=== PATIENT | female | born 1950 | race Caucasian/White ===

== ENCOUNTER 2019-10-26 21:58 | Observation (INO) ==
[2019-10-26] MEDS ORDERED: Isovue-370 500 ML BOTTLE IVP ONE (22:19)
[2019-10-26 23:48] LABS: BUN/Creatinine Ratio 14 (6-26); Blood Urea Nitrogen 11 mg/dL (8-23); Calcium 8.8 mg/dL (8.6-10.3); Carbon Dioxide 22 mEq/L (23-29); Chloride 107 mEq/L (98-107); Glucose 108 mg/dL (70-105); Osmolality,Calculated 278 (280-300); Potassium 3.8 mEq/L (3.5-5.1); Sodium 134 mEq/L (136-145); eGFR For African Americans > 60 (> 60); eGFR For Non-African Americans > 60 (> 60)
[2019-10-26 23:49] LABS: Albumin 3.7 g/dL (3.5-5.7); Albumin/Globulin Ratio 1.2 (1.1-2.2); Bilirubin,Direct 0.2 mg/dL (0.0-0.2); Bilirubin,Indirect 0.9 mg/dL (0.0-1.0); Bilirubin,Total 1.1 mg/dL (0.3-1.0); Globulin 3.1 g/dL (2.4-3.5); Total Protein 6.8 g/dL (6.4-8.9)
[2019-10-26 23:51] LABS: Hematocrit 42.1 % (35.3-44.9); Hemoglobin 13.9 g/dL (11.5-15.4); Mean Corpuscular Hemoglobin 28.9 pg (28.0-33.3); Mean Corpuscular Volume 87.5 fL (83.0-100.0); Mean Platelet Volume 11.7 fL (9.4-12.4); Platelet Count 201 K/mcL (140-400); Red Blood Count 4.81 M/mcL (3.82-4.97); Red Cell Distribution Width 13.5 % (11.5-14.5); White Blood Count 8.8 K/mcL (4.3-11.1)
[2019-10-27 00:36] LABS: Bilirubin,Urine Small (Negative); Blood,Urine Negative (Negative); Clarity,Urine Cloudy (Clear); Color,Urine Dark Yellow (Yellow); Glucose,Urine (UA) Normal (Normal); Ketones,Urine Negative (Negative); Leukocyte Esterase,Urine Moderate (Negative); Nitrite,Urine Negative (Negative); Protein,Urine Negative (Neg-Trace); Specific Gravity,Urine 1.025 (1.010-1.025)
[2019-10-27 00:39] LABS: Bacteria,Urine None Seen per hpf (None-Few); Hyaline Casts,Urine None Seen per lpf (None-Few); RBC,Urine 0-3 per hpf (0-3); Squamous Epithelial Cell,Urine Many per lpf (None-Few)
[2019-10-27] MEDS ORDERED: CefOXitin 1,000 MG VIAL ONE (02:16)
[2019-10-27] MEDS ORDERED: *HR* FentaNYL (PF) 100 MCG/2 ML VIAL ONE (02:39)
[2019-10-27] MEDS ORDERED: *HR* Propofol 200 MG/20 ML VIAL IVP ONE (02:40)
[2019-10-27] MEDS ORDERED: Lidocaine -MPF 2% 2 ML VIAL ONE (02:42)
[2019-10-27] MEDS ORDERED: *HR* Succinylcholine 200 MG/10 ML VIAL IVP ONE (02:42)
[2019-10-27] MEDS ORDERED: Dexamethasone 4 MG/ML VIAL ONE (02:42)
[2019-10-27] MEDS ORDERED: *HR* Rocuronium Bromide 50 MG/5 ML VIAL ONE (02:42)
[2019-10-27] MEDS ORDERED: Ondansetron 4 MG/2 ML VIAL ONE (02:42)
[2019-10-27] MEDS ORDERED: Ondansetron 4 MG/2 ML VIAL IVP ONE ×2 (02:55→04:42)
[2019-10-27] MEDS ORDERED: *HR* OxyCODONE Immed Rel 5 MG TABLET PO PRN (02:55)
[2019-10-27] MEDS ORDERED: *HR* HYDROmorphone PF 0.5 MG/0.5 ML SYRINGE IVP PRN (02:55)
[2019-10-27] MEDS ORDERED: Acetaminophen IV 1,000 MG/100 ML INFUS..BTL ONE (02:58)
[2019-10-27] MEDS ORDERED: CefOXitin 2,000 MG VIAL ONE (03:04)
[2019-10-27] MEDS ORDERED: Lidocaine HCL 4 ML Topical Solution (Laryng-O-Jet Kit Sterile Pak) TP ONE (03:20)
[2019-10-27] MEDS ORDERED: Neostigmine Methylsulfate 3 MG/3 ML SYRINGE ONE (03:57)
[2019-10-27] MEDS ORDERED: *HR* OxyCODONE/APAP 5/325 TABLET PO PRN (05:07)
[2019-10-27] MEDS ORDERED: Ondansetron 4 MG/2 ML VIAL IVP PRN (05:07)
[2019-10-27] MEDS ORDERED: 0.9 % Sodium Chloride 1,000 ML IVC SCH (05:07)
[2019-10-27 07:24] VITALS: BP 108/58
[2019-10-27] MEDS ORDERED: cefOXitin 2,000 MG in Water for inj. (sterile) 20 ML IVP SCH (11:00)
== END 2019-10-27 12:05 | disposition home or self-care (01) ==
LOC: 3ANU 21:58 → EMEROOARM 21:58 → 3ANU 10-27 02:41
PROVIDERS: ADMIT Surgery; ATTEND Surgery